=== PATIENT | female | born 1955 | race Caucasian/White ===

== ENCOUNTER 2017-01-30 13:42 | Emergency (ER) | payer OTHER ==
[~2017-01-30] VITALS: Ht 157.5 cm; Wt 123.4 kg
[~2017-01-30 13:42] MED LIST: ASPEC81 PO; METO25TA56 PO; MTR600X PO; NTRGSL/4 UT; SIMV40TA2 PO
[2017-01-30 13:49] VITALS: Ht 157.5 cm; Wt 123.4 kg
[2017-01-30] MEDS ORDERED: ALBUT/IPRATROP 3MG/0.5MG NEB 3 ML VIAL INH STA (14:24)
[2017-01-30] MEDS ORDERED: ASPI81TA28 PO (14:33)
--- NOTE | 2017-01-30 15:48 | DIAGNOSTIC IMAGING REPORT ---
CHEST 2 VIEWS ROUTINE CLINICAL HISTORY: Worsening cough, influenza dyspnea COMPARISON STUDY: 04/16/2010 FINDINGS: Parenchymal infiltrate right base. Minimal infiltrative change left base. Mid and upper lungs are grossly clear. Mild stable cardiomegaly. IMPRESSION: Infiltrate right base. Minimal parenchymal infiltrate left lower lobe. Electronically signed by: Mckinley Terry M.D. 01/30/2017 3:46 PM Dictated Date/Time: 01/30/2017 3:46 PM
[2017-01-30] MEDS ORDERED: HYDR5SYP11 PO (16:24)
[2017-01-30] MEDS ORDERED: DOXY100C PO (16:24)
[2017-01-30] MEDS ORDERED: ALBUTEROL HFA 8 GM INHALER INH STA (16:25)
[2017-01-30 16:30] VITALS: BP 150/83; PULSE 86; TEMP 36.8; O2SAT 94
--- NOTE | 2017-01-30 17:56 | EMERGENCY ROOM VISIT NOTE ---
History First contact with patient: 14:18 Chief Complaint: RESPIRATORY PROBLEMS Stated Complaint: CHEST PAIN AND COUGH Nursing Triage Summary: patient states she is short of breath for several days. non productive cough. now having some chest discomfort. History of Present Illness The patient is a 62 year old female who presents to the Emergency Room with complaints of progressively worsening cough and shortness of breath. The patient reports that her symptoms started on Saturday. She was seen at [facility] and tested positive for influenza. She was given prescriptions for Tamiflu and Tessalon Perles. She reports that the cough is worsening. She denies any prior history of asthma, pneumonia or COPD/emphysema. She has not had any fevers or chills, myalgias, chest pain, back pain, neck pain or headache. She denies any urinary symptoms or diarrhea. She currently rates her discomfort a 7 out of 10, and complains primarily of cough. Review of Systems 10 system review was performed and was negative except for pertinent positives and negatives as indicated in history of present illness Past Medical/Surgical History Medical Problems: (1) Body Mass Index 40 And Over, Adult (2) Coronary Atherosclerosis Of [place] Coronary Vessel (3) Lumbago (4) Morbid Obesity (5) Obstructive Sleep Apnea (Adult) (Pediatric) (6) Old Myocardial Infarct Surgical Problems: (1) History of cholecystectomy (2) History of hysterectomy Family History FH: cancer FH: diabetes mellitus FH: heart disease Social History Smoking Status: Never Smoker Alcohol Use: none Marital Status: Housing Status: lives with family Occupation Status: employed Current/Historical Medications Scheduled Aspirin (Aspirin Ec), 81 MG PO DAILY Doxycycline Hyclate (Vibramycin), 100 MG PO BID Metoprolol Tartrate (Lopressor) (Lopressor), 25 MG PO BID Nitroglycerin (Nitrostat), 0.4 MG UT PRN Scheduled PRN Hydrocodone W/ Homatropine (Hycodan 5/1.5MG 5 Ml), 5-10 ML PO Q4H PRN for Cough Allergies Coded Allergies: Latex1 -Allergic Contact Dermititis (Unverified Allergy, Mild, RASH, ) Adhesives (Verified Allergy, Unknown, BANDAIDS-GETS BLISTERS , 06/09/14) CLOTH BANDAIDS OK PER PT Simvastatin (Unverified Adverse Reaction, Intermediate, CRAMPING, 3/15/17) Physical Exam Vital Signs Date Time Temp Pulse Resp B/P Pulse Ox O2 Delivery O2 Flow Rate FiO2 01/30/17 16:30 36.8 86 20 150/83 94 01/30/17 15:27 86 20 94 Room Air 01/30/17 15:25 150/83 01/30/17 15:22 92 19 95 01/30/17 15:17 88 20 96 01/30/17 15:12 90 24 90 01/30/17 15:07 86 16 97 01/30/17 15:02 87 17 96 01/30/17 14:57 85 24 100 01/30/17 14:52 83 15 100 01/30/17 14:47 82 23 93 01/30/17 14:42 82 20 01/30/17 14:37 82 16 01/30/17 14:32 80 18 01/30/17 14:27 79 18 01/30/17 14:22 81 20 01/30/17 14:17 82 18 01/30/17 14:13 79 01/30/17 14:12 84 22 01/30/17 14:05 95 Room Air 01/30/17 13:49 36.8 85 20 177/68 94 Room Air Physical Exam CONSTITUTIONAL: Healthy and well nourished. Alert and oriented X 3 with positive affect. Patient has a frequent nonproductive cough. HEENT: Normocephalic, atraumatic. Pupils equal, round and reactive. Ears and nares are clear. NECK: Full active range of motion without discomfort. No JVD or carotid bruits. RESPIRATORY: Clear to auscultation bilaterally with no wheezing, crackles, rhonchi or stridor. CARDIOVASCULAR: Regular rate and rhythm with no murmurs, rubs or gallops. GASTROINTESTINAL: Bowel sounds present in all quadrants. Soft and nontender to palpation. MUSCULOSKELETAL: Full range of motion of all joints without discomfort. INTEGUMENTARY: No rash or other significant dermatologic conditions noted. NEUROLOGIC: No focal neurologic deficits noted. Medical Decision & Procedures ER Provider Diagnostic Interpretation: My interpretation of a two-view chest x-ray shows bibasilar infiltrates consistent with pneumonia. Radiologist report is as follows: CHEST 2 VIEWS ROUTINE CLINICAL HISTORY: Worsening cough, influenza dyspnea COMPARISON STUDY: 04/16/2010 FINDINGS: Parenchymal infiltrate right base. Minimal infiltrative change left base. Mid and upper lungs are grossly clear. Mild stable cardiomegaly. IMPRESSION: Infiltrate right base. Minimal parenchymal infiltrate left lower lobe. Medications Administered Medications (Trade) Dose Ordered Sig/Dakota Route Start Time Stop Time Status Last Admin Dose Admin Albuterol/ Ipratropium (Duoneb) 3 ml NOW STAT INH 01/30/17 14:24 01/30/17 14:26 DC 01/30/17 14:46 3 ML Albuterol (Ventolin Hfa Inhaler) 2 puffs ONE STAT INH 01/30/17 16:25 01/30/17 16:26 DC 01/30/17 16:30 2 PUFFS ED Course Patient history and physical exam were performed. Nurse's notes were reviewed. Vital signs were reviewed. O2 saturation is 94% on room air. The patient is afebrile and not tachycardic. The patient has a mild nonproductive cough. She does not appear in any acute respiratory distress. A unit dose DuoNeb treatment was administered with minimal relief of her cough. Chest x-rays showed bilateral basilar infiltrates consistent with pneumonia. The patient was advised of her chest x-ray findings. Was provided prescriptions for doxycycline and Hycodan cough syrup. The patient was instructed to also take Mucinex for additional cough relief. She was instructed to follow-up with her PCP in the next 2-3 days for recheck, returning to the emergency department for any progressively worsening symptoms. The patient felt well enough for discharge, and was happy with plan of care. Impression Primary Impression: Pneumonia Additional Impression: Influenza Departure Information Prescriptions Hydrocodone W/ Homatropine (HYCODAN 5/1.5MG 5 ML) 1 Syp Syp 5-10 ML PO Q4H Y for Cough, #200 ML Prov: Luis A Us PA 01/30/17 Doxycycline Hyclate (VIBRAMYCIN) 100 Mg Cap 100 MG PO BID for 10 Days, #20 CAP Prov: Luis A Us PA 01/30/17 Referrals No Doctor, Assigned (PCP) Patient Instructions My [facility] Problem Qualifiers Primary Impression: Pneumonia Pneumonia type: due to unspecified organism Laterality: bilateral Lung location: lower lobe of lung Qualified Codes: J18.9 - Pneumonia, unspecified organism
== END 2017-01-30 16:31 | disposition home or self-care (01) ==
LOC: C.EDB 13:43 → C.EDA 16:31
DX: J11.00 Influenza due to unidentified influenza virus with unspecified type of pneumonia (principal); I25.10 Atherosclerotic heart disease of native coronary artery without angina pectoris; I25.2 Old myocardial infarction; Z79.899 Other long term (current) drug therapy; Z79.82 Long term (current) use of aspirin; Z83.3 Family history of diabetes mellitus; Z82.49 Family history of ischemic heart disease and other diseases of the circulatory system

== ENCOUNTER 2023-06-10 08:47 | Observation (INO) ==
--- NOTE | 2023-06-10 09:02 | Emergency Department Note ---
History of Present Illness General Chief complaint: Chest Pain History of Present Illness 68-year-old female presents emergency department with an onset of right-sided chest pain that started earlier this morning. Patient states that the pain was moderate 5 out of 10 nonradiating no associated shortness of breath no nausea vomiting or diaphoresis. Patient called EMS was given aspirin prior to arrival. Patient currently states the pain has subsided. Patient denies rash on her chest. Patient denies cough cold congestion patient denies recent trauma to the chest. Patient has a prior history of 2 stents after an ND in 2009. Home Medications Medication Instructions Recorded Confirmed Type aspirin 81 mg tablet,delayed 81 mg PO QAM 04/28/22 06/10/23 History release metoprolol tartrate 25 mg tablet 25 mg PO BID 04/28/22 06/10/23 History nitroglycerin 0.4 mg sublingual 0.4 mg sublingual UD PRN Chest Pain 04/28/22 06/10/23 History tablet Hair, Skin And Nails Gummies 2 gummy PO DAILY 06/10/23 06/10/23 History Allergies Allergy/AdvReac Type Severity Reaction Status Date / Time latex Allergy Mild RASH Unverified 04/28/22 16:38 adhesive Allergy Unknown BANDAIDS-GETS Verified 04/28/22 16:38 BLISTERS simvastatin AdvReac Intermediate CRAMPING Unverified 04/28/22 16:38 Past Med/Surg History Medical History Coronary artery disease Hypertension Obesity Surgical History History of cholecystectomy History of hysterectomy Family History Other Family history non-contributory Social History Smoking Status: Never smoker Feels Safe at Home: Yes Review of Systems A total of 10 systems reviewed and were otherwise negative Cardiovascular: + chest pain Physical Exam Vital Signs Vital Signs - 24 hr 06/10/23 08:57 06/10/23 08:57 06/10/23 08:59 Temperature 36.6 C 36.6 C Temperature Source Oral Oral Pulse Rate 77 81 Pulse Rate [Left Finger] 77 Pulse Rhythm Regular Pulse Rhythm [Left Finger] Regular Pulse Strength Normal Pulse Strength [Left Finger] Normal Respiratory Rate 18 18 Respiratory Depth Normal Normal Blood Pressure 154/88 H Blood Pressure [Right Arm] 153/88 H Blood Pressure Mean 110 Blood Pressure Mean [Right Arm] 109 Blood Pressure Position Lying Pulse Oximetry 97 97 Oxygen Delivery Method Room Air Sepsis Recent Fever Within 48 Hours No Sepsis New/Unexplained Change in Mental Status N/A Sepsis Action Taken by Nursing No Action Required 06/10/23 09:00 06/10/23 09:30 06/10/23 10:00 Temperature Temperature Source Pulse Rate 77 66 63 Pulse Rate [Left Finger] Pulse Rhythm Pulse Rhythm [Left Finger] Pulse Strength Pulse Strength [Left Finger] Respiratory Rate 19 12 14 Respiratory Depth Blood Pressure 163/99 H 140/98 154/95 H Blood Pressure [Right Arm] Blood Pressure Mean 120 112 114 Blood Pressure Mean [Right Arm] Blood Pressure Position Pulse Oximetry 96 96 97 Oxygen Delivery Method Room Air Room Air Room Air Sepsis Recent Fever Within 48 Hours Sepsis New/Unexplained Change in Mental Status Sepsis Action Taken by Nursing 06/10/23 11:00 Temperature Temperature Source Pulse Rate 62 Pulse Rate [Left Finger] Pulse Rhythm Pulse Rhythm [Left Finger] Pulse Strength Pulse Strength [Left Finger] Respiratory Rate 12 Respiratory Depth Blood Pressure 145/88 H Blood Pressure [Right Arm] Blood Pressure Mean 107 Blood Pressure Mean [Right Arm] Blood Pressure Position Pulse Oximetry 96 Oxygen Delivery Method Room Air Sepsis Recent Fever Within 48 Hours Sepsis New/Unexplained Change in Mental Status Sepsis Action Taken by Nursing GENERAL: Patient is awake alert in no acute distress patient is resting comfortably and showing no signs of anxiety EYES: The conjunctivae are clear. The pupils are round and reactive. EARS, NOSE, MOUTH AND THROAT: The nose is without any evidence of any deformity. Mucous membranes are moist. Tongue is midline. NECK: The neck is nontender and supple. RESPIRATORY: Normal respiratory effort is noted there is no evidence of wheezing rhonchi or rales CARDIOVASCULAR: Regular rate and rhythm noted there no murmurs rubs or gallops normal S1 normal S2. GASTROINTESTINAL: The abdomen is soft. Abdomen is nontender. BMI is greater than 40 BACK: No midline tenderness or or step-off noted range of motion in flexion extension as well as rotation no signs of muscle spasm noted MUSCULOSKELETAL/EXTREMITIES: There is no evidence of gross deformity full range of motion is noted in the hips and shoulders. SKIN: There is no obvious evidence of any rash. There are no petechiae, pallor or cyanosis noted. NEUROLOGIC: Patient is awake alert and oriented x3 strength is symmetric Course Reevaluation(s) Reevaluation #1: Patient is resting in no distress with no current chest pain Time: :34 Consultations Consultation #1: Case was discussed with the [facility] Hospitalist for admission Time: :34 Administered Medications Discontinued Medications Ioversol (Ioversol 350 Mg 125ml Prefilled Syringe) 120 ml IV ONCE ONE Stop: 06/10/23 10:34 Last Admin: 06/10/23:34 Dose: 120 ml Documented By: ANGEL Medical Decision Making Medical Records Attestation: I reviewed the patient's medical records. Home Medications Current Medication List: was personally reviewed by me Laboratory Data Attestation: I reviewed the patient's lab results. Lab work interpreted by me normal troponin, elevated D-dimer 06/10/23 09:00 06/10/23 09:00 Lab Results 06/10/23 06/10/23 06/10/23 Range/Units 09:00 09:00 09:00 WBC 7.72 (4.8-10.8) K/ul RBC 4.86 (4.20-5.40) M/uL Hgb 15.6 (12.0-16.0) g/dl Hct 45.8 (37.0-47.0) % MCV 94.2 (80.0-100.0) fL MCH 32.1 (25.0-34.0) pg MCHC 34.1 (32.0-36.0) g/dL RDW Std Deviation 44.5 (36.4-46.3) fL RDW Coeff of Sherwin 12.9 (11.5-14.5) % Plt Count 183 (130-400) K/uL MPV 10.7 (9.4-12.4) fL Immature Gran % (Auto) 0.4 % Neut % (Auto) 67.4 % Lymph % (Auto) 19.6 % Owsley % (Auto) 9.8 % Eos % (Auto) 2.2 % Baso % (Auto) 0.6 % Neut # (Auto) 5.20 (1.40-6.50) K/uL Lymph # (Auto) 1.51 (1.2-3.4) K/uL Owsley # (Auto) 0.76 H (0.11-0.59) K/uL Eos # (Auto) 0.17 (0-0.50) K/uL Baso # (Auto) 0.05 (0-0.2) K/uL Immature Gran # (Auto) 0.03 (0.01-0.20) K/uL PT 10.5 (9.0-12.0) Seconds INR 1.0 (0.9-1.1) APTT 24.8 (21.0-31.0) Seconds PTT Ratio 0.9 D-Dimer 560 H* (0-500) ug/L FEU Sodium 136 (136-145) mmol/L Potassium 4.3 (3.5-5.1) mmol/L Chloride 102 (98-107) mmol/L Carbon Dioxide 25 (21-32) mmol/L Anion Gap 9 (3-11) BUN 13 (6-23) mg/dl Creatinine 0.90 (0.6-1.2) mg/dl Est Cr Clr Drug Dosing 75.7 ml/min Est GFR ( Amer) 76.7 ml/min Est GFR (Non-Af Amer) 66.2 ml/min BUN/Creatinine Ratio 14.4 (10-20) Glucose 177 H (70-99(Fasting)) mg/dl Calcium 9.1 (8.6-10.3) mg/dl Total Bilirubin 0.7 (0.2-1.0) mg/dl AST 27 (13-39) U/L ALT 23 (7-52) U/L Alkaline Phosphatase 65 (34-104) U/L Troponin I High Sens 4.9 (0-14) pg/ml Total Protein 7.8 (6.0-8.3) gm/dl Albumin 3.9 (3.4-5.0) gm/dl Globulin 3.9 (2.5-4.0) gm/dl Albumin/Globulin Ratio 1.0 (0.9-2) SARS-CoV-2, RNA, NAAT (NEGATIVE) 06/10/23 Range/Units 09:00 WBC (4.8-10.8) K/ul RBC (4.20-5.40) M/uL Hgb (12.0-16.0) g/dl Hct (37.0-47.0) % MCV (80.0-100.0) fL MCH (25.0-34.0) pg MCHC (32.0-36.0) g/dL RDW Std Deviation (36.4-46.3) fL RDW Coeff of Sherwin (11.5-14.5) % Plt Count (130-400) K/uL MPV (9.4-12.4) fL Immature Gran % (Auto) % Neut % (Auto) % Lymph % (Auto) % [place] % (Auto) % Eos % (Auto) % Baso % (Auto) % Neut # (Auto) (1.40-6.50) K/uL Lymph # (Auto) (1.2-3.4) K/uL [place] # (Auto) (0.11-0.59) K/uL Eos # (Auto) (0-0.50) K/uL Baso # (Auto) (0-0.2) K/uL Immature Gran # (Auto) (0.01-0.20) K/uL PT (9.0-12.0) Seconds INR (0.9-1.1) APTT (21.0-31.0) Seconds PTT Ratio D-Dimer (0-500) ug/L FEU Sodium (136-145) mmol/L Potassium (3.5-5.1) mmol/L Chloride (98-107) mmol/L Carbon Dioxide (21-32) mmol/L Anion Gap (3-11) BUN (6-23) mg/dl Creatinine (0.6-1.2) mg/dl Est Cr Clr Drug Dosing ml/min Est GFR ( Amer) ml/min Est GFR (Non-Af Amer) ml/min BUN/Creatinine Ratio (10-20) Glucose (70-99(Fasting)) mg/dl Calcium (8.6-10.3) mg/dl Total Bilirubin (0.2-1.0) mg/dl AST (13-39) U/L ALT (7-52) U/L Alkaline Phosphatase (34-104) U/L Troponin I High Sens (0-14) pg/ml Total Protein (6.0-8.3) gm/dl Albumin (3.4-5.0) gm/dl Globulin (2.5-4.0) gm/dl Albumin/Globulin Ratio (0.9-2) SARS-CoV-2, RNA, NAAT NEGATIVE (NEGATIVE) Imaging Data Attestation: I personally reviewed and interpreted this imaging study as follows: My Impression: Chest x-ray interpreted by me negative for infiltrate CT chest interpreted by me negative for pneumothorax Radiologist's Impression: Chest X-Ray 06/10/23 08:50 XR chest 1V portable CLINICAL HISTORY: Chest pain, nonspecific COMPARISON STUDY: Chest radiograph January 30, 2017. FINDINGS: Lung volumes are normal. Lungs are clear. There is no pneumothorax or pleural effusion. Cardiomegaly is unchanged. Mediastinal contours are normal. There is no evidence for pulmonary edema. IMPRESSION: No acute cardiopulmonary findings. Cardiomegaly. ACT 112: Negative or not required by law. Electronically signed by: Marcell Bhatia M.D. 06/10/2023 9:41 AM Chest CTA 06/10/23 10:11 CHEST CTA for PULMONARY ARTERIES CT DOSE: 848.44 mGy.cm HISTORY: Intermittent atypical chest pain. TECHNIQUE: Multiaxial CT images of the chest were performed following the intravenous administration of contrast to evaluate the pulmonary arteries. 3D/Maximal intensity projection images were also obtained. Sagittal and coronal reformations were also reviewed. A dose lowering technique was utilized adhering to the principles of ALARA. COMPARISON STUDY: Chest CTA 12/18/2010. FINDINGS: Normal caliber thoracic aorta with no evidence for a dissection. There are [id number] coronary artery calcifications noted. The heart is mildly enlarged. No filling defects within the pulmonary arteries to suggest a pulmonary embolus. No acute fractures within the chest. Trace mucoid material within the trachea. Otherwise, the central airways are patent. No pneumothorax. No pleural effusions. No focal lung consolidations to suggest a pneumonia. No evidence for pulmonary edema. No acute fractures identified. Limited views of the upper abdomen demonstrate hepatic steatosis and a normal spleen. The adrenal glands unremarkable. Prior cholecystectomy. No pericardial effusion. Normal esop hagus. No mediastinal or hilar lymphadenopathy. IMPRESSION: 1. No evidence for a pulmonary embolus. 2. Mild cardiomegaly. ACT 112: Negative or not required by law. Electronically signed by: Richi Harrington M.D. 06/10/2023 11:08 AM ECG Data Attestation: I personally reviewed and interpreted this ECG as follows: Additional Comments: EKG interpreted by me normal sinus rhythm rate of 70 normal intervals normal axis no obvious ST segment elevation or depression Telemetry was ordered by me, interpreted as normal sinus rhythm rate of 70 MDM Narrative Medical decision making differential diagnosis includes angina, unstable angina, acute coronary syndrome, acute ND, pneumothorax, costochondritis, pneumonia, pleurisy Plan is to check labs, EKG, chest x-ray, the patient was given aspirin prior to arrival External medical records were reviewed most recent presentation was April 2021 Heart score is a 4 Patient will be admitted for chest pain, I do not suspect PE or thoracic aortic dissection Impression & Plan Chest pain Discharge Plan Visit Data Chief Complaint: Chest Pain ED Provider: Jacob Winter Discharge Problem: Chest pain Patient Disposition: Admitted As Inpatient Forms Stand Alone Forms: My [facility] Prescriptions Prescriptions: No Action aspirin [Aspirin Low-Strength] 81 mg Tablet,Delayed Release (Dr/Ec) 81 mg PO QAM nitroglycerin 0.4 mg Tablet, Sublingual 0.4 mg sublingual UD PRN (Reason: Chest Pain) metoprolol tartrate 25 mg tablet 25 mg PO BID Hair, Skin And Nails Gummies 2 gummy PO DAILY Referrals Referrals: Calin Nassar MD [Primary Care Provider] -
[2023-06-10 09:35] LABS: Basophils # (auto) 0.05 K/uL (0-0.2); Basophils % (auto) 0.6 %; Eosinophils # (auto) 0.17 K/uL (0-0.50); Eosinophils % (auto) 2.2 %; Hematocrit (blood only) 45.8 % (37.0-47.0); Hemoglobin 15.6 g/dl (12.0-16.0); Immature Granulocytes # (auto) 0.03 K/uL (0.01-0.20); Immature Granulocytes % (auto) 0.4 %; Lymphocytes # (auto) 1.51 K/uL (1.2-3.4); Lymphocytes % (auto) 19.6 %; Mean Corpuscular Hemoglobin 32.1 pg (25.0-34.0); Mean Corpuscular Hgb Conc 34.1 g/dL (32.0-36.0); Mean Corpuscular Volume 94.2 fL (80.0-100.0); Mean Platelet Volume 10.7 fL (9.4-12.4); Monocytes # (auto) 0.76 K/uL (0.11-0.59); Monocytes % (auto) 9.8 %; Neutrophils % (auto) 67.4 %; Platelet Count 183 K/uL (130-400); RDW Coefficient of Variation 12.9 % (11.5-14.5); RDW Standard Deviation 44.5 fL (36.4-46.3); Red Blood Count 4.86 M/uL (4.20-5.40); White Blood Count 7.72 K/ul (4.8-10.8)
--- NOTE | 2023-06-10 09:42 | XRay Report ---
XR chest 1V portable CLINICAL HISTORY: Chest pain, nonspecific COMPARISON STUDY: Chest radiograph January 30, 2017. FINDINGS: Lung volumes are normal. Lungs are clear. There is no pneumothorax or pleural effusion. Car diomegaly is unchanged. Mediastinal contours are normal. There is no evidence for pulmonary edema. IMPRESSION: No acute cardiopulmonary findings. Cardiomegaly. ACT 112: Negative or not required by law. Electronically signed by: Marcell Bhatia M.D. 06/10/2023 9:41 AM
[2023-06-10 10:02] LABS: Partial Thromboplastin Ratio 0.9; Partial Thromboplastin Time 24.8 Seconds (21.0-31.0); Prothrombin Time 10.5 Seconds (9.0-12.0)
[2023-06-10 10:08] LABS: Albumin Level 3.9 gm/dl (3.4-5.0); Bilirubin,Total 0.7 mg/dl (0.2-1.0); Calcium 9.1 mg/dl (8.6-10.3); Potassium 4.3 mmol/L (3.5-5.1)
[2023-06-10 10:10] LABS: D Dimer 560 ug/L FEU (0-500)
[2023-06-10 10:14] LABS: BUN Creatinine Ratio 14.4 (10-20); Creatinine Clr Calc Pharmacy 75.7 ml/min; Est GFR (African American) 76.7 ml/min; Est GFR (Non-African American) 66.2 ml/min; Globulin 3.9 gm/dl (2.5-4.0); Total Protein 7.8 gm/dl (6.0-8.3)
[2023-06-10 10:16] LABS: Troponin I High Sensitivity 4.9 pg/ml (0-14)
[2023-06-10] MEDS ORDERED: IOVERSOL 350 MG 125mL Prefilled Syringe IV ONE (10:33)
--- NOTE | 2023-06-10 11:11 | CT Scan Report ---
CHEST CTA for PULMONARY ARTERIES CT DOSE: 848.44 mGy.cm HISTORY: Intermittent atypical chest pain. TECHNIQUE: Multiaxial CT images of the chest were performed following the intravenous administration of contrast to evaluate the pulmonary arteries. 3D/Maximal intensity projection images were also obta ined. Sagittal and coronal reformations were also reviewed. A dose lowering technique was utilized a dhering to the principles of ALARA. COMPARISON STUDY: Chest CTA 12/18/2010. FINDINGS: Normal caliber thoracic aorta with no evidence for a dissection. There are [id number] coronary artery calcifications noted. The heart is mildly enlarged. No filling defects within the pu lmonary arteries to suggest a pulmonary embolus. No acute fractures within the chest. Trace mucoid ma terial within the trachea. Otherwise, the central airways are patent. No pneumothorax. No pleural eff usions. No focal lung consolidations to suggest a pneumonia. No evidence for pulmonary edema. No acut e fractures identified. Limited views of the upper abdomen demonstrate hepatic steatosis and a normal spleen. The adrenal glands unremarkable. Prior cholecystectomy. No pericardial effusion. Normal esop hagus. No mediastinal or hilar lymphadenopathy. IMPRESSION: 1. No evidence for a pulmonary embolus. 2. Mild cardiomegaly. ACT 112: Negative or not required by law. Electronically signed by: Richi Harrington M.D. 06/10/2023 11:08 AM
--- NOTE | 2023-06-10 11:31 | Electrocardiogram Report ---
Test Reason : Blood Pressure : / mmHG Vent. Rate : 070 BPM Atrial Rate : 070 BPM P-R Int : 162 ms QRS Dur : 076 ms QT Int : 390 ms P-R-T Axes : 040 030 023 degrees QTc Int : 421 ms Normal sinus rhythm Normal ECG When compared with ECG of 28-APR-2022 14:04, No significant change was found Confirmed by Lane Murray ([id number]) on 06/10/2023 11:30:52 AM Referred By: Confirmed By:Lane Murray
--- NOTE | 2023-06-10 11:45 | History & Physical Report ---
Date of Service June 10, 2023 Assessment & Plan (1) Chest pain: Plan: This is a 68 y/o female with a history of CAD and prior AR s/p primary angioplasty to the diagonal branch of the LAD, dyslipidemia with hx of statin intolerance, HTN, and obesity who presented to the ED today with an episode of right chest pressure and heaviness that lasted approximately one hour, went away after taking aspirin 81 mg x 4 from EMS. Initial work-up in the ED was negative for ischemia but with her cardiac history and description of chest pain being similar to prior AR, pt was referred for observation overnight as a chest pain rule out. - Observe on med telemetry overnight - Repeat EKG in the AM and with any recurrent chest pain - Trend troponin - Check lipid panel in AM - pt is only able to tolerate taking statin once weekly - Check A1c in the AM as glucose in the ED was 177 and pt has a family history of diabetes - Spoke with Dr. Roche with whom patient follows as an outpatient - he will see pt while admitted - Check ECHO - Continue aspirin and beta-julieth (2) Coronary artery disease: (3) Hypertension: (4) Dyslipidemia: (5) Statin intolerance: Plan Pt seen and reviewed with collaborating physician, Dr. Richmond. Plan of care discussed and as outlined above. Code Status: Full code DVT Prophylaxis: Mao Simental PA-C History of Present Illness Chief Complaint: Chest Pain Primary Care Provider: Calin Nassar MD This is a 68 y/o female with a PMH of CAD and prior AR s/p angioplasty of the diagonal branch of the LAD in 2009, dyslipidemia with intolerance to statins, and HTN who presented to the ED today with chest pain. She reports that she got up this morning to go to the bathroom around 6 am and developed right chest pain that she describes as a heaviness and pressure. This radiated through to her back and right shoulder blade. She did not take her nitro but called EMS as the pain felt similar to her prior AR in 2009. She had some mild associated dyspnea but denies nausea, diaphoresis, palpitations, or dizziness. She reports that overall, she has done well since 2009 with no significant cardiac events. It appears that her last ECHO was in 2009. She denies any recent exertional chest pain or discomfort, recent illness, heavy lifting, change in activity level, or syncopal episodes. She is currently taking the rosuvastatin once a week on Wednesdays and seems to be tolerating this. Does not tolerate taking more frequently due to myalgias. Allergies Allergy/AdvReac Type Severity Reaction Status Date / Time latex Allergy Mild RASH Unverified 04/28/22 16:38 adhesive Allergy Unknown BANDAIDS-GETS Verified 04/28/22 16:38 BLISTERS simvastatin AdvReac Intermediate CRAMPING Unverified 04/28/22 16:38 Home Medications Medication Instructions Recorded Confirmed Type aspirin 81 mg tablet,delayed 81 mg PO QAM 04/28/22 06/10/23 History release metoprolol tartrate 25 mg tablet 25 mg PO BID 04/28/22 06/10/23 History nitroglycerin 0.4 mg sublingual 0.4 mg sublingual UD PRN Chest Pain 04/28/22 06/10/23 History tablet Hair, Skin And Nails Gummies 2 gummy PO DAILY 06/10/23 06/10/23 History rosuvastatin 5 mg tablet 5 mg PO WK 06/10/23 06/10/23 History Past Med/Surg History Medical History (Updated 06/10/23 @ 12:52 by Mercedez Simental PA-C) Coronary artery disease Dyslipidemia History of AR (myocardial infarction) Hypertension Obesity Statin intolerance Surgical History History of cholecystectomy History of D&C History of tonsillectomy Status post primary angioplasty Family History Sister Diabetes Brother Diabetes Father Heart disease Social History Smoking Status: Never smoker Second Hand Exposure: No; Do You Dip or Chew Tobacco: No; Tobacco Cessation Education Requested by Patient: No Hx Alcohol Use: No Hx Substance Use: No Preferred Language: Macedonian Communication Ability: Effective Jelly Maker Required: No Beliefs That Will Affect Care: None Current Living Situation: Family Other Information That Helps Us Care for You: No Feels Safe at Home: Yes Safety Concerns: Feels Safe At This Time Review of Systems Review of Systems: All systems reviewed & are unremarkable except as noted in HPI & below Constitutional: + fatigue and + weakness; no fever and no chills Eyes: no diplopia and no worsening vision Ear, Nose, Mouth, Throat: no nasal congestion, no nasal discharge and no sore throat Respiratory: no cough and no wheezing Cardiovascular: as per Subjective / HPI Gastrointestinal: no abdominal pain, no nausea, no vomiting, no diarrhea/loose stools and no blood in stools Genitourinary: no dysuria and no hematuria Musculoskeletal: no back pain and no neck pain Integumentary: no rash and no yellowing of the skin Neurologic: no unsteadiness, no seizure-like activity, no syncope and no headache(s) Psychiatric: no depression and no anxiety Physical Exam Constitutional: + obese; no acute distress Eyes: + anicteric sclerae Neck: trachea midline Respiratory: no respiratory distress and no labored breathing Auscultation: lungs clear to auscultation bilaterally; no rales, no rhonchi and no wheezes Cardiovascular: Rate/Rhythm: regular rate and regular rhythm Vessels: posterior tibial pulses present and radial pulses present Extremities: no pedal edema right chest wall tender to palpation - per pt, somewhat reproduces the chest pain she had earlier today Gastrointestinal (Abdomen): Inspection/Auscultation: normal bowel sounds; a bdomen not distended Percussion/Palpation: abdomen soft; abdomen nontender Musculoskeletal: Head/Neck/Chest: normocephalic, head atraumatic and neck supple Skin: no jaundice Neurologic: moves all extremities; no focal motor deficits and not confused Psychiatric: A+Ox3, euthymic affect Results & Data Results & Data Vital Signs (Past 12 Hours) Vital Signs Temp Pulse Pulse Resp BP BP Pulse Ox 06/10/23 11:00 62 12 145/88 H 96 06/10/23 10:00 63 14 154/95 H 97 06/10/23 09:30 66 12 140/98 96 06/10/23 09:00 77 19 163/99 H 96 06/10/23 08:59 81 06/10/23 08:57 36.6 C 77 18 153/88 H 97 06/10/23 08:57 36.6 C 77 18 154/88 H 97 O2 Del Method 06/10/23 11:00 Room Air 06/10/23 10:00 Room Air 06/10/23 09:30 Room Air 06/10/23 09:00 Room Air 06/10/23 08:59 06/10/23 08:57 06/10/23 08:57 Room Air Laboratory Results Laboratory Results - last 24 hr 06/10/23 06/10/23 06/10/23 09:00 09:00 09:00 WBC 7.72 RBC 4.86 Hgb 15.6 Hct 45.8 MCV 94.2 MCH 32.1 MCHC 34.1 RDW Std Deviation 44.5 RDW Coeff of Sherwin 12.9 Plt Count 183 MPV 10.7 Immature Gran % (Auto) 0.4 Neut % (Auto) 67.4 Lymph % (Auto) 19.6 [place] % (Auto) 9.8 Eos % (Auto) 2.2 Baso % (Auto) 0.6 Neut # (Auto) 5.20 Lymph # (Auto) 1.51 [place] # (Auto) 0.76 H Eos # (Auto) 0.17 Baso # (Auto) 0.05 Immature Gran # (Auto) 0.03 PT 10.5 INR 1.0 APTT 24.8 PTT Ratio 0.9 D-Dimer 560 H* Sodium 136 Potassium 4.3 Chloride 102 Carbon Dioxide 25 Anion Gap 9 BUN 13 Creatinine 0.90 Est Cr Clr Drug Dosing 75.7 Est GFR ( Amer) 76.7 Est GFR (Non-Af Amer) 66.2 BUN/Creatinine Ratio 14.4 Glucose 177 H Calcium 9.1 Total Bilirubin 0.7 AST 27 ALT 23 Alkaline Phosphatase 65 Troponin I High Sens 4.9 Total Protein 7.8 Albumin 3.9 Globulin 3.9 Albumin/Globulin Ratio 1.0 SARS-CoV-2, RNA, NAAT 06/10/23 09:00 WBC RBC Hgb Hct MCV MCH MCHC RDW Std Deviation RDW Coeff of Sherwin Plt Count MPV Immature Gran % (Auto) Neut % (Auto) Lymph % (Auto) [place] % (Auto) Eos % (Auto) Baso % (Auto) Neut # (Auto) Lymph # (Auto) [place] # (Auto) Eos # (Auto) Baso # (Auto) Immature Gran # (Auto) PT INR APTT PTT Ratio D-Dimer Sodium Potassium Chloride Carbon Dioxide Anion Gap BUN Creatinine Est Cr Clr Drug Dosing Est GFR ( Amer) Est GFR (Non-Af Amer) BUN/Creatinine Ratio Glucose Calcium Total Bilirubin AST ALT Alkaline Phosphatase Troponin I High Sens Total Protein Albumin Globulin Albumin/Globulin Ratio SARS-CoV-2, RNA, NAAT NEGATIVE Diagnostic Findings Chest X-Ray 06/10/23 08:50 XR chest 1V portable CLINICAL HISTORY: Chest pain, nonspecific COMPARISON STUDY: Chest radiograph January 30, 2017. FINDINGS: Lung volumes are normal. Lungs are clear. There is no pneumothorax or pleural effusion. Cardiomegaly is unchanged. Mediastinal contours are normal. There is no evidence for pulmonary edema. IMPRESSION: No acute cardiopulmonary findings. Cardiomegaly. Chest CTA 06/10/23 10:11 CHEST CTA for PULMONARY ARTERIES CT DOSE: 848.44 mGy.cm HISTORY: Intermittent atypical chest pain. TECHNIQUE: Multiaxial CT images of the chest were performed following the intravenous administration of contrast to evaluate the pulmonary arteries. 3D/Maximal intensity projection images were also obtained. Sagittal and coronal reformations were also reviewed. A dose lowering technique was utilized adhering to the principles of ALARA. COMPARISON STUDY: Chest CTA 12/18/2010. FINDINGS: Normal caliber thoracic aorta with no evidence for a dissection. There are [id number] coronary artery calcifications noted. The heart is mildly enlarged. No filling defects within the pulmonary arteries to suggest a pulmonary embolus. No acute fractures within the chest. Trace mucoid material within the trachea. Otherwise, the central airways are patent. No pneumothorax. No pleural effusions. No focal lung consolidations to suggest a pneumonia. No evidence for pulmonary edema. No acute fractures identified. Limited views of the upper abdomen demonstrate hepatic steatosis and a normal spleen. The adrenal glands unremarkable. Prior cholecystectomy. No pericardial effusion. Normal esophagus. No mediastinal or hilar lymphadenopathy. IMPRESSION: 1. No evidence for a pulmonary embolus. 2. Mild cardiomegaly. Medications Administered Discontinued Medications Ioversol (Ioversol 350 Mg 125ml Prefilled Syringe) 120 ml IV ONCE ONE Stop: 06/10/23 10:34 Last Admin: 06/10/23 10:34 Dose: 120 ml Documented By: ANGEL Supervising Physician Co-Signing Physician Notes Patient was seen and examined independently at bedside. Chart reviewed. Case discussed with Mercedez AGUILAR and agree with the documentation above. In summary, this is a 68 year old female with h/o CAD s/p angioplasty 2009 who presented to the ED with CP today. States this feels like her prior NSTEMI. She did not take her home SL nitro. Was given full dose aspirin by EMS During my encounter, she was lying comfortably in bed, not in distress, no more CP. Chest clear, non tender on palpation of chest, heart sounds normal, abd benign, no LE edeman, neuro non focal. On work up, EKG and initial trop negative, labs unremarkable, CT chest negative for PE or PNA. Seen by cardio. Agree with serial trop, tele, echo. If dynamic changes, stress test in am. NPO after midnight for same. Losartan added for BP control per cardio. Continue ASA, statin, beta julieth. Follow up on A1c- will need addition of oral antidiabetic if diabetes confirmed. Rest as per the note above.
--- NOTE | 2023-06-10 13:12 | Cardiology Consultation ---
Date of Consultation June 10, 2023 Assessment & Plan (1) Chest pain: (2) Hypertension: (3) Coronary artery disease: (4) Dyslipidemia: (5) Statin intolerance: Plan Patient admitted with atypical chest pain. History of remote CAD treated with angioplasty to the diagonal of the LAD in 2009 with other non obstructive disease noted. No recent ischemic work up. She was to have a dobutamine stress echo in 2016 but this was cancelled and not rescheduled. No acute EKG changes. HS troponin negative x1 on admission. repeat pending this afternoon. Continue ASA, low dose Crestor (intolerant of higher doses and Zetia), metoprolol. Uncontrolled hypertension noted in April 2023 in ER and again on this admission. She does not monitor BP at home. Continue metoprolol Add losartan 25 mg and titrate as tolerated. Recent A1C was 7.4 so she is likely diabetic and would benefit from SAJI/ARB. Hospitalist to recheck in AM and treat DM Update echo Further recommendations pending review/results of serial troponin, echocardiogram, and treatment of HTN. Will make NPO after midnight in case she has recurrent chest pain and consider ischemic work up at that time. Case discussed with Dr. Roche I spent a total of 55 minutes on the date of service in preparation, delivery, and documentation of the care provided to this patient, excluding any time spent in the performance of separately billed services. Юлия Ruth PA-C Department of Cardiology, [facility] This chart was completed in part utilizing Speech Voice Recognition Software. Grammatical errors, random word insertions, pronoun errors, and incomplete sentences are an occasional consequence of this system due to software limitations, ambient noise, and hardware issues. Any formal questions or concerns about the content, text, or information contained within the body of this dictation should be directly addressed to the provider for clarification. Supervising Physician Co-Signing Physician Notes Supervising Physician Attestation: I have personally performed a history and physical examination on the patient. I agree with the physician bilingual administrative assistant's findings and plan as documented with the following additions. Subjective: Chest pain improved at the time my assessment. Telemetry reveals sinus rhythm. EKG without ischemic changes Exam: Cardiovascular regular rhythm, no murmurs, no edema Pulmonary: Lungs clear to auscultation bilaterally Data: EKG without acute repolarization changes x2. CT angiogram without evidence of pulmonary embolism Echocardiogram reveals normal LVEF, 55 to 60%, no significant valvular disease, grade 2 diastolic dysfunction Assessment and Plan: Chest pain, troponin negative x2. EKG and echocardiogram reassuring Hypertension with blood pressure uncharacteristically high for her -- Echocardiogram suggest underlying high blood pressure related heart disease with mild concentric left ventricular hypertrophy, grade 2 diastolic dysfunction Continue prior to hospital treatment with metoprolol, add losartan. DVT prophylaxis: Consider pharmacologic DVT prophylaxis depending upon length of stay. I spent a total of [] minutes on the date of service in preparation, delivery, and documentation of the care provided to this patient, excluding any time spent in the performance of separately billed services. José Roche, DO History of Present Illness Reason for Consultation: chest pain; History of CAD Requesting Physician: Ms. Reid Simental PA-C Attending Physician: Dr. Roche History of Present Illness Patient is a 68 year old female known to [facility] cardiology, Dr. Roche. History includes: 1. Chronic coronary heart disease, s/p small NSTEMI 04/2010 for wich she underwentcardiac catheterization([facility]) with findings of branch vessel CAD receiving plain balloon angioplasty to a diagonal branch of the LAD, Proximal LAD lesion not significant by FFR 2. 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 HTN 4. Dyslipidemia 5. Statin intolerance. 6 obesity Patient admitted for episode of chest pain. Cardiology consulted for evaluation of her symptoms given history of CAD. Patient reports being awoken from sleep this morning with right sided chest pain/pressure radiating to her right shoulder. Symptoms waxed/waned for about 30 minutes. When symptoms did not fully resolve, she called EMS. When EMS arrived, she was treated with ASA 81 mg x4 and symptoms resolved within a few minutes. She was brought to ER for evaluation. EKG on arrival demonstrated NSR without acute changes. There was T wave inversion in single lead, III. Initial HS troponin was negative. D.Dimer was elevated and patient underwent CTA which was negative for PE or other acute findings. Chest xray was clear. Uncontrolled hypertension noted. Patient reports compliance with her metoprolol. She does not monitor her BP at home. She was in the ER last month for possible GI bleeding from hemorrhoids. Uncontrolled hypertension was noted. She was to follow up with PCP at that time but no appts scheduled. Hbg normal now. No signs of GI bleeding. BP remains high again this admission. At time of consult, patient resting in bed comfortably. Notes intermittent chest pain since admission but these episodes "come and go" lasting only seconds. No radiation. No positional chest pain or pleuritic chest pain. She denies recent exertional chest pain. Admits to chronic dyspnea with steps or walking long distances but feels this is unchanged. No palpitations or tachypalpitations. No recent ischemic evaluation per outside records review. She is compliant with low dose Crestor one time per week. She has intolerances to multiple other statins and Zetia. she has previously declined PCSK9 inhib. Per review of outpatient records, recent A1C was 7.4. not currently treated for DM. Allergies Allergy/AdvReac Type Severity Reaction Status Date / Time latex Allergy Mild RASH Unverified 04/28/22 16:38 adhesive Allergy Unknown BANDAIDS-GETS Verified 04/28/22 16:38 BLISTERS simvastatin AdvReac Intermediate CRAMPING Unverified 04/28/22 16:38 Home Medications Medication Instructions Recorded Confirmed Type aspirin 81 mg tablet,delayed 81 mg PO QAM 04/28/22 06/10/23 History release metoprolol tartrate 25 mg tablet 25 mg PO BID 04/28/22 06/10/23 History nitroglycerin 0.4 mg sublingual 0.4 mg sublingual UD PRN Chest Pain 04/28/22 06/10/23 History tablet Hair, Skin And Nails Gummies 2 gummy PO DAILY 06/10/23 06/10/23 History rosuvastatin 5 mg tablet 5 mg PO WK 06/10/23 06/10/23 History Patient History Medical History (Updated 06/10/23 @ 12:52 by Mercedez Simental PA-C) Coronary artery disease Dyslipidemia History of RI (myocardial infarction) Hypertension Obesity Statin intolerance Surgical History History of cholecystectomy History of D&C History of tonsillectomy Status post primary angioplasty Family History Sister Diabetes Brother Diabetes Father Heart disease Social History Smoking Status: Never smoker Second Hand Exposure: No; Do You Dip or Chew Tobacco: No; Tobacco Cessation Education Requested by Patient: No Hx Alcohol Use: No Hx Substance Use: No Preferred Language: Spanish Communication Ability: Effective Manager Hvac Required: No Beliefs That Will Affect Care: None Current Living Situation: Family Other Information That Helps Us Care for You: No Feels Safe at Home: Yes Safety Concerns: Feels Safe At This Time Review of Systems Review of Systems: All systems reviewed & are unremarkable except as noted in HPI & below Physical Exam Constitutional: WD/WN, vitals as above + morbidly obese; no acute distress Neck: + thick neck Respiratory: normal respiratory effort, lungs clear to auscultation Cardiovascular: Rate/Rhythm: regular rate and regular rhythm Heart Sounds: normal S1 and normal S2; no murmur Vessels: no JVD Extremities: no edema Gastrointestinal (Abdomen): normal bowel sounds, soft, nontender, no hepatosplenomegaly Neurologic: PERRL, EOMI, accommodation nl, no face palsy, no dysarthria Results & Data Vital Signs (Past 12 Hours) Vital Signs Temp Pulse Pulse Resp BP BP Pulse Ox 06/10/23 13:00 65 20 156/91 H 98 06/10/23 12:30 67 14 151/110 H 97 06/10/23 12:00 65 18 140/82 97 06/10/23 11:30 64 16 142/80 H 95 06/10/23 11:00 62 12 145/88 H 96 06/10/23 10:00 63 14 154/95 H 97 06/10/23 09:30 66 12 140/98 96 06/10/23 09:00 77 19 163/99 H 96 06/10/23 08:59 81 06/10/23 08:57 36.6 C 77 18 153/88 H 97 06/10/23 08:57 36.6 C 77 18 154/88 H 97 O2 Del Method 06/10/23 13:00 Room Air 06/10/23 12:30 Room Air 06/10/23 12:00 Room Air 06/10/23 11:30 Room Air 06/10/23 11:00 Room Air 06/10/23 10:00 Room Air 06/10/23 09:30 Room Air 06/10/23 09:00 Room Air 06/10/23 08:59 06/10/23 08:57 07/24/23 08:57 Room Air Laboratory Results Cardiac Enzymes 06/10/23 Range/Units 09:00 AST 27 (13-39) U/L Troponin I High Sens 4.9 (0-14) pg/ml Coagulation 06/10/23 Range/Units 09:00 PT 10.5 (9.0-12.0) Seconds APTT 24.8 (21.0-31.0) Seconds CBC 06/10/23 Range/Units 09:00 WBC 7.72 (4.8-10.8) K/ul RBC 4.86 (4.20-5.40) M/uL Hgb 15.6 (12.0-16.0) g/dl Hct 45.8 (37.0-47.0) % Plt Count 183 (130-400) K/uL Neut # (Auto) 5.20 (1.40-6.50) K/uL Lymph # (Auto) 1.51 (1.2-3.4) K/uL [place] # (Auto) 0.76 H (0.11-0.59) K/uL Eos # (Auto) 0.17 (0-0.50) K/uL Baso # (Auto) 0.05 (0-0.2) K/uL Comprehensive Metabolic Panel 06/10/23 Range/Units 09:00 Sodium 136 (136-145) mmol/L Potassium 4.3 (3.5-5.1) mmol/L Chloride 102 (98-107) mmol/L Carbon Dioxide 25 (21-32) mmol/L BUN 13 (6-23) mg/dl Creatinine 0.90 (0.6-1.2) mg/dl Glucose 177 H (70-99(Fasting)) mg/dl Calcium 9.1 (8.6-10.3) mg/dl AST 27 (13-39) U/L ALT 23 (7-52) U/L Alkaline Phosphatase 65 (34-104) U/L Total Protein 7.8 (6.0-8.3) gm/dl Albumin 3.9 (3.4-5.0) gm/dl Intake and Output 06/09/23 06/10/23 06/10/23 22:59 06:59 14:59 Other: Weight 122.5 kg Weight Measurement Method Built in [facility] Patient Weight 06/11/23 06:59 Weight 122.5 kg Diagnostic Findings Telemetry reviewed: NSR without arrhythmias EKG reviewed: Normal sinus rhythm No acute changes/findings. When compared with ECG of 28-APR-2022 14:04, No significant change was found Chest X-Ray 06/10/23 08:50 XR chest 1V portable CLINICAL HISTORY: Chest pain, nonspecific COMPARISON STUDY: Chest radiograph January 30, 2017. FINDINGS: Lung volumes are normal. Lungs are clear. There is no pneumothorax or pleural effusion. Cardiomegaly is unchanged. Mediastinal contours are normal. There is no evidence for pulmonary edema. IMPRESSION: No acute cardiopulmonary findings. Cardiomegaly. ACT 112: Negative or not required by law. Electronically signed by: Marcell Bhatia M.D. 06/10/2023 9:41 AM Chest CTA 06/10/23 10:11 CHEST CTA for PULMONARY ARTERIES CT DOSE: 848.44 mGy.cm HISTORY: Intermittent atypical chest pain. TECHNIQUE: Multiaxial CT images of the chest were performed following the intravenous administration of contrast to evaluate the pulmonary arteries. 3D/Maximal intensity projection images were also obtained. Sagittal and coronal reformations were also reviewed. A dose lowering technique was utilized adhering to the principles of ALARA. COMPARISON STUDY: Chest CTA 12/18/2010. FINDINGS: Normal caliber thoracic aorta with no evidence for a dissection. There are [id number] coronary artery calcifications noted. The heart is mildly enlarged. No filling defects within the pulmonary arteries to suggest a pulmonary embolus. No acute fractures within the chest. Trace mucoid material within the trachea. Otherwise, the central airways are patent. No pneumothorax. No pleural effusions. No focal lung consolidations to suggest a pneumonia. No evidence for pulmonary edema. No acute fractures identified. Limited views of the upper abdomen demonstrate hepatic steatosis and a normal spleen. The adrenal glands unremarkable. Prior cholecystectomy. No pericardial effusion. Normal esophagus. No mediastinal or hilar lymphadenopathy. IMPRESSION: 1. No evidence for a pulmonary embolus. 2. Mild cardiomegaly. ACT 112: Negative or not required by law. Electronically signed by: Richi Harrington M.D. 06/10/2023 11:08 AM Medications Administered Current Inpatient Medications Acetaminophen (Acetaminophen 325 Mg Tab) 650 mg PO Q4H PRN PRN Reason: Pain or Fever Stop: 07/10/23 14:09 Aspirin (Aspirin 81 Mg Ectab) 81 mg PO QAM [facility] Stop: 07/11/23 08:59 Losartan Potassium (Losartan Potassium 25 Mg Tab) 25 mg PO QAM [facility] Stop: 07/10/23 14:29 Metoprolol Tartrate (Metoprolol Tartrate 25 Mg Tab) 25 mg PO BID [facility] Stop: 07/10/23 20:59 Nitroglycerin (Nitroglycerin Sl 0.4 Mg/Tab Tab) 0.4 mg SL Q5M PRN PRN Reason: Chest Pain Stop: 07/10/23 14:09
[2023-06-10] MEDS ORDERED: NITROGLYCERIN SL 0.4 MG/TAB TAB SL PRN (14:10)
[2023-06-10] MEDS ORDERED: ACETAMINOPHEN 325 MG TAB PO PRN (14:10)
[2023-06-10] MEDS: LOSARTAN POTASSIUM 25 MG TAB PO SCH (15:30)
[2023-06-10] MEDS: METOPROLOL TARTRATE 25 MG TAB PO SCH (20:07)
[2023-06-11 07:54] LABS: Estimated Average Glucose 183 mg/dl
[2023-06-11 08:26] LABS: Chol HDL Ratio 4.7 (0-5)
--- NOTE | 2023-06-11 08:48 | Electrocardiogram Report ---
Test Reason : Blood Pressure : / mmHG Vent. Rate : 067 BPM Atrial Rate : 067 BPM P-R Int : 160 ms QRS Dur : 084 ms QT Int : 398 ms P-R-T Axes : 049 039 033 degrees QTc Int : 420 ms Normal sinus rhythm Normal ECG When compared with ECG of 10-JUN-2023 08:52, No significant change was found Confirmed by Lane Murray ([id number]) on 06/11/2023 8:48:34 AM Referred By: REFERRED SELF Confirmed By:Lane Murray
[2023-06-11] MEDS: LOSARTAN POTASSIUM 25 MG TAB PO SCH (08:57)
[2023-06-11] MEDS: METOPROLOL TARTRATE 25 MG TAB PO SCH (08:57)
[2023-06-11] MEDS ORDERED: ASPIRIN 81 MG ECTAB PO SCH (09:00)
--- NOTE | 2023-06-11 09:28 | Hospitalist Progress Note ---
Date of Service June 11, 2023 Assessment & Plan (1) Chest pain: Plan: This is a 68 y/o female with a history of CAD and prior AK s/p primary angioplasty to the diagonal branch of the LAD, dyslipidemia with hx of statin intolerance, HTN, and obesity who presented to the ED with an episode of right chest pressure and heaviness that lasted approximately one hour, went away after taking aspirin 81 mg x 4 from EMS. Initial work-up in the ED was negative for ischemia but with her cardiac history and description of chest pain being similar to prior AK, pt was referred for observation overnight as a chest pain rule out. - med telemetry - Trended troponin - Checked lipid panel - pt is only able to tolerate taking statin once weekly - Checked A1c 8.0% - found elevated which is a sign of diabetes - pt needs to follow up with primary care doctor - pt has a family history of diabetes - Discussed w/ cardiology - with Dr. Roche Echo obtained - Mild concentric LVH. No regional wall motion abnormalities noted. LV systolic function is normal. EF 55 to 60%. Diastolic function. Study compatible with hypertension related heart disease with mild concentric LVH, with grade 2 diastolic function - Continue aspirin and beta-julieth Per cardiology - echo with preserved EF, no wall motion abnormalities. Given negative cardiac enzymes, no recurrent chest pain, and normal echo, no further cardiac testing warranted at this time. Continue ASA, low dose Crestor (intolerant of higher doses and Zetia), metoprolol. Uncontrolled hypertension noted in April 2023 in ER and again on this admission. She does not monitor BP at home. Continue metoprolol Add losartan 25 mg (2) Coronary artery disease: (3) Hypertension: (4) Dyslipidemia: (5) Statin intolerance: Plan Code Status: Full code DVT Prophylaxis: Lovenox Admission and Anticipated Discharge Date Admission Date: June 10, 2023 Subjective Pt seen in follow up of chest pain Currently sitting up in bed in NAD Currently denies any chest discomfort Says she had right sided chest pain radiating to her arm. Day prior she was able to do all her regular activities including cleaning the floor. Currently also denies any shortness of breath, abd. pain, n/v denies any fever or chills Discussed w/ cardiology Review of Systems Review of Systems: All systems reviewed & are unremarkable except as noted in Subjective Physical Exam Physical Exam: Constitutional:L + obese; no acute distress Eyes: + anicteric sclera e Neck: supple Respiratory: no respiratory dis tress and no labor ed breathing Ausc ultation: lungs cl ear to auscultatio n bilaterally; no rales, no rhonchi and no wheezes Cardiovascular:L Rate/Rhythm: regul ar rate and regula r rhythm Gastrointestinal ( Abdomen): Inspection/Auscult ation: normal moisés l sounds; abdomen not distended Per cussion/Palpation: abdomen soft; abd omen nontender Musculoskeletal: Head/Neck/Chest: n ormocephalic, head atraumatic and ne ck supple Skin: warm, dry Neurologic: moves all extremit ies; no focal sumaya r deficits and not confused Psychiatric: A+Ox3, euthymic af fect Results & Data Results & Data Vital Signs (Past 12 Hours) Vital Signs Temp Pulse Pulse Resp BP Pulse Ox O2 Del Method 06/11/23 08:00 36.4 C L 69 16 123/80 94 Room Air 06/11/23 07:34 64 06/11/23 04:10 36.9 C 72 18 136/78 96 Room Air 06/11/23 01:16 70 06/10/23 22:46 36.9 C 70 18 124/83 95 Room Air Laboratory Results 06/11/23 06/11/23 06/10/23 Range/Units 07:03 07:03 21:00 WBC (4.8-10.8) K/ul RBC (4.20-5.40) M/uL Hgb (12.0-16.0) g/dl Hct (37.0-47.0) % MCV (80.0-100.0) fL MCH (25.0-34.0) pg MCHC (32.0-36.0) g/dL RDW Std Deviation (36.4-46.3) fL RDW Coeff of Sherwin (11.5-14.5) % Plt Count (130-400) K/uL MPV (9.4-12.4) fL Immature Gran % (Auto) % Neut % (Auto) % Lymph % (Auto) % [place] % (Auto) % Eos % (Auto) % Baso % (Auto) % Neut # (Auto) (1.40-6.50) K/uL Lymph # (Auto) (1.2-3.4) K/uL [place] # (Auto) (0.11-0.59) K/uL Eos # (Auto) (0-0.50) K/uL Baso # (Auto) (0-0.2) K/uL Immature Gran # (Auto) (0.01-0.20) K/uL PT (9.0-12.0) Seconds INR (0.9-1.1) APTT (21.0-31.0) Seconds PTT Ratio D-Dimer (0-500) ug/L FEU Sodium (136-145) mmol/L Potassium (3.5-5.1) mmol/L Chloride (98-107) mmol/L Carbon Dioxide (21-32) mmol/L Anion Gap (3-11) BUN (6-23) mg/dl Creatinine (0.6-1.2) mg/dl Est Cr Clr Drug Dosing ml/min Est GFR ( Amer) ml/min Est GFR (Non-Af Amer) ml/min BUN/Creatinine Ratio (10-20) Glucose (70-99(Fasting)) mg/dl Estimat Average Glucose 183 mg/dl Hemoglobin A1c 8.0 H (4.5-5.6) % Calcium (8.6-10.3) mg/dl Total Bilirubin (0.2-1.0) mg/dl AST (13-39) U/L ALT (7-52) U/L Alkaline Phosphatase (34-104) U/L Troponin I High Sens 4.0 (0-14) pg/ml Total Protein (6.0-8.3) gm/dl Albumin (3.4-5.0) gm/dl Globulin (2.5-4.0) gm/dl Albumin/Globulin Ratio (0.9-2) Triglycerides 141 (0-150) mg/dl Cholesterol 184 (0-200) mg/dl LDL Cholesterol, Calc 117 mg/dl VLDL Cholesterol, Calc 28 (0-30) mg/dl HDL Cholesterol 39 mg/dl Cholesterol/HDL Ratio 4.7 (0-5) SARS-CoV-2, RNA, NAAT (NEGATIVE) 06/10/23 06/10/23 06/10/23 Range/Units 15:37 09:00 09:00 WBC (4.8-10.8) K/ul RBC (4.20-5.40) M/uL Hgb (12.0-16.0) g/dl Hct (37.0-47.0) % MCV (80.0-100.0) fL MCH (25.0-34.0) pg MCHC (32.0-36.0) g/dL RDW Std Deviation (36.4-46.3) fL RDW Coeff of Sherwin (11.5-14.5) % Plt Count (130-400) K/uL MPV (9.4-12.4) fL Immature Gran % (Auto) % Neut % (Auto) % Lymph % (Auto) % [place] % (Auto) % Eos % (Auto) % Baso % (Auto) % Neut # (Auto) (1.40-6.50) K/uL Lymph # (Auto) (1.2-3.4) K/uL [place] # (Auto) (0.11-0.59) K/uL Eos # (Auto) (0-0.50) K/uL Baso # (Auto) (0-0.2) K/uL Immature Gran # (Auto) (0.01-0.20) K/uL PT (9.0-12.0) Seconds INR (0.9-1.1) APTT (21.0-31.0) Seconds PTT Ratio D-Dimer (0-500) ug/L FEU Sodium 136 (136-145) mmol/L Potassium 4.3 (3.5-5.1) mmol/L Chloride 102 (98-107) mmol/L Carbon Dioxide 25 (21-32) mmol/L Anion Gap 9 (3-11) BUN 13 (6-23) mg/dl Creatinine 0.90 (0.6-1.2) mg/dl Est Cr Clr Drug Dosing 75.7 ml/min Est GFR ( Amer) 76.7 ml/min Est GFR (Non-Af Amer) 66.2 ml/min BUN/Creatinine Ratio 14.4 (10-20) Glucose 177 H (70-99(Fasting)) mg/dl Estimat Average Glucose mg/dl Hemoglobin A1c (4.5-5.6) % Calcium 9.1 (8.6-10.3) mg/dl Total Bilirubin 0.7 (0.2-1.0) mg/dl AST 27 (13-39) U/L ALT 23 (7-52) U/L Alkaline Phosphatase 65 (34-104) U/L Troponin I High Sens 5.6 4.9 (0-14) pg/ml Total Protein 7.8 (6.0-8.3) gm/dl Albumin 3.9 (3.4-5.0) gm/dl Globulin 3.9 (2.5-4.0) gm/dl Albumin/Globulin Ratio 1.0 (0.9-2) Triglycerides (0-150) mg/dl Cholesterol (0-200) mg/dl LDL Cholesterol, Calc mg/dl VLDL Cholesterol, Calc (0-30) mg/dl HDL Cholesterol mg/dl Cholesterol/HDL Ratio (0-5) SARS-CoV-2, RNA, NAAT NEGATIVE (NEGATIVE) 06/10/23 06/10/23 Range/Units 09:00 09:00 WBC 7.72 (4.8-10.8) K/ul RBC 4.86 (4.20-5.40) M/uL Hgb 15.6 (12.0-16.0) g/dl Hct 45.8 (37.0-47.0) % MCV 94.2 (80.0-100.0) fL MCH 32.1 (25.0-34.0) pg MCHC 34.1 (32.0-36.0) g/dL RDW Std Deviation 44.5 (36.4-46.3) fL RDW Coeff of Sherwin 12.9 (11.5-14.5) % Plt Count 183 (130-400) K/uL MPV 10.7 (9.4-12.4) fL Immature Gran % (Auto) 0.4 % Neut % (Auto) 67.4 % Lymph % (Auto) 19.6 % [place] % (Auto) 9.8 % Eos % (Auto) 2.2 % Baso % (Auto) 0.6 % Neut # (Auto) 5.20 (1.40-6.50) K/uL Lymph # (Auto) 1.51 (1.2-3.4) K/uL [place] # (Auto) 0.76 H (0.11-0.59) K/uL Eos # (Auto) 0.17 (0-0.50) K/uL Baso # (Auto) 0.05 (0-0.2) K/uL Immature Gran # (Auto) 0.03 (0.01-0.20) K/uL PT 10.5 (9.0-12.0) Seconds INR 1.0 (0.9-1.1) APTT 24.8 (21.0-31.0) Seconds PTT Ratio 0.9 D-Dimer 560 H* (0-500) ug/L FEU Sodium (136-145) mmol/L Potassium (3.5-5.1) mmol/L Chloride (98-107) mmol/L Carbon Dioxide (21-32) mmol/L Anion Gap (3-11) BUN (6-23) mg/dl Creatinine (0.6-1.2) mg/dl Est Cr Clr Drug Dosing ml/min Est GFR ( Amer) ml/min Est GFR (Non-Af Amer) ml/min BUN/Creatinine Ratio (10-20) Glucose (70-99(Fasting)) mg/dl Estimat Average Glucose mg/dl Hemoglobin A1c (4.5-5.6) % Calcium (8.6-10.3) mg/dl Total Bilirubin (0.2-1.0) mg/dl AST (13-39) U/L ALT (7-52) U/L Alkaline Phosphatase (34-104) U/L Troponin I High Sens (0-14) pg/ml Total Protein (6.0-8.3) gm/dl Albumin (3.4-5.0) gm/dl Globulin (2.5-4.0) gm/dl Albumin/Globulin Ratio (0.9-2) Triglycerides (0-150) mg/dl Cholesterol (0-200) mg/dl LDL Cholesterol, Calc mg/dl VLDL Cholesterol, Calc (0-30) mg/dl HDL Cholesterol mg/dl Cholesterol/HDL Ratio (0-5) SARS-CoV-2, RNA, NAAT (NEGATIVE) Medications Administered Current Inpatient Medications Acetaminophen (Acetaminophen 325 Mg Tab) 650 mg PO Q4H PRN PRN Reason: Pain or Fever Stop: 07/10/23 14:09 Aspirin (Aspirin 81 Mg Ectab) [address] [facility] Stop: 07/11/23 08:59 Last Admin: 06/11/23 08:57 Dose: 81 mg Losartan Potassium (Losartan Potassium 25 Mg Tab) 25 mg PO QAM [facility] Stop: 07/10/23 14:29 Last Admin: 06/11/23 08:57 Dose: 25 mg Metoprolol Tartrate (Metoprolol Tartrate 25 Mg Tab) 25 mg PO BID [facility] Stop: 07/10/23 20:59 Last Admin: 06/11/23 08:57 Dose: 25 mg Nitroglycerin (Nitroglycerin Sl 0.4 Mg/Tab Tab) 0.4 mg SL Q5M PRN PRN Reason: Chest Pain Stop: 07/10/23 14:09
--- NOTE | 2023-06-11 09:46 | Cardiology Progress Note ---
Date of Service June 11, 2023 Assessment & Plan (1) Chest pain: (2) Hypertension: (3) Coronary artery disease: (4) Dyslipidemia: (5) Statin intolerance: Plan Patient admitted with atypical chest pain. History of remote CAD treated with angioplasty to the diagonal of the LAD in 2009 with other non obstructive disease noted. No acute EKG changes on admission. HS troponin negative x3 since admission No recurrent chest pain Continue ASA, low dose Crestor (intolerant of higher doses and Zetia), metoprolol. Uncontrolled hypertension noted in April 2023 in ER and again on this admission. She does not monitor BP at home. Continue metoprolol Add losartan 25 mg BP improved. echo with preserved EF, no wall motion abnormalities. Given negative cardiac enzymes, no recurrent chest pain, and normal echo, no further cardiac testing warranted at this time. would recommend treatment for underlying DM. Defer to hospitalist and PCP. Stable cardiac symptoms for discharge with above recommendations. Breakfast ordered. Case discussed with Dr. Roche I spent a total of 25 minutes on the date of service in preparation, delivery, and documentation of the care provided to this patient, excluding any time spent in the performance of separately billed services. Юлия Ruth PA-C Department of Cardiology, [facility] This chart was completed in part utilizing Speech Voice Recognition Software. Grammatical errors, random word insertions, pronoun errors, and incomplete sentences are an occasional consequence of this system due to software limitations, ambient noise, and hardware issues. Any formal questions or concerns about the content, text, or information contained within the body of this dictation should be directly addressed to the provider for clarification. Admission and Anticipated Discharge Date Admission Date: June 10, 2023 Supervising Physician Co-Signing Physician Notes I personally did a history and physical exam on the patient. Reviewed findings as noted by Юлия Ruth PA-C with additions as noted below. Subjective: Additional chest discomfort. Blood pressure under much better control. Physical exam: Cardiovascular: Regular rhythm no murmurs rubs or gallops Lungs clear to station bilaterally Impression: Chest discomfort, atypical in character for angina with negative cardiac enzymes, no ischemic changes on EKG Hypertension with suggestion of hypertension related heart disease on echocardiogram -Patient stable for discharge on losartan 25 mg daily in addition to her previous medications no further cardiac testing felt to be indicated at present. Already has outpatient follow-up visit. Elfego Roche , DO Subjective Patient resting in bed comfortably. Denies recurrent chest pain or dyspnea. BP much improved. She voices no acute cardiac concerns this morning. Review of Systems Review of Systems: All systems reviewed & are unremarkable except as noted in HPI & below Physical Exam Constitutional: WD/WN, vitals as above + morbidly obese; no acute distress Neck: + thick neck Respiratory: normal respiratory effort, lungs clear to auscultation Cardiovascular: Rate/Rhythm: regular rate and regular rhythm Heart Sounds: normal S1 and normal S2; no murmur Vessels: no JVD Extremities: no edema Gastrointestinal (Abdomen): normal bowel sounds, soft, nontender, no hepatosplenomegaly Neurologic: PERRL, EOMI, accommodation nl, no face palsy, no dysarthria Results & Data Vital Signs (Past 12 Hours) Vital Signs Temp Pulse Pulse Resp BP Pulse Ox O2 Del Method 06/11/23 08:00 36.4 C L 69 16 123/80 94 Room Air 06/11/23 07:34 64 06/11/23 04:10 36.9 C 72 18 136/78 96 Room Air 06/11/23 01:16 70 06/10/23 22:46 36.9 C 70 18 124/83 95 Room Air Laboratory Results Cardiac Enzymes 06/10/23 06/10/23 06/10/23 Range/Units 09:00 15:37 21:00 AST 27 (13-39) U/L Troponin I High Sens 4.9 5.6 4.0 (0-14) pg/ml Coagulation 06/10/23 Range/Units 09:00 PT 10.5 (9.0-12.0) Seconds APTT 24.8 (21.0-31.0) Seconds Lipids 06/11/23 Range/Units 07:03 Triglycerides 141 (0-150) mg/dl Cholesterol 184 (0-200) mg/dl HDL Cholesterol 39 mg/dl Cholesterol/HDL Ratio 4.7 (0-5) Comprehensive Metabolic Panel 06/10/23 Range/Units 09:00 Sodium 136 (136-145) mmol/L Potassium 4.3 (3.5-5.1) mmol/L Chloride 102 (98-107) mmol/L Carbon Dioxide 25 (21-32) mmol/L BUN 13 (6-23) mg/dl Creatinine 0.90 (0.6-1.2) mg/dl Glucose 177 H (70-99(Fasting)) mg/dl Calcium 9.1 (8.6-10.3) mg/dl AST 27 (13-39) U/L ALT 23 (7-52) U/L Alkaline Phosphatase 65 (34-104) U/L Total Protein 7.8 (6.0-8.3) gm/dl Albumin 3.9 (3.4-5.0) gm/dl Intake and Output 06/10/23 06/11/23 06/11/23 22:59 06:59 14:59 Intake Total 0 / 0 Balance 0 / 0 Intake: Oral 0 / 0 Other: Other Intake Source Sips NPO with ice chips # Unmeasured Voids 1 Weight 118.1 kg Weight Measurement Method Standing Scale Diagnostic Findings Telemetry reviewed: NSR in the 60's. No arrhythmias echo results reviewed from 06/10: Normal LVEF Mild concentric LVH No wall motion abnormalities LVEF 55-60% Grade II diastolic dysfunction Study compatible with hypertension related heart disease with mild concentric LVH, grade II diastolic dysfunction. Medications Administered Current Inpatient Medications Acetaminophen (Acetaminophen 325 Mg Tab) 650 mg PO Q4H PRN PRN Reason: Pain or Fever Stop: 07/10/23 14:09 Aspirin (Aspirin 81 Mg Ectab) 81 mg PO QAM [facility] Stop: 07/11/23 08:59 Last Admin: 06/11/23 08:57 Dose: 81 mg Losartan Potassium (Losartan Potassium 25 Mg Tab) 25 mg PO QAM [facility] Stop: 07/10/23 14:29 Last Admin: 06/11/23 08:57 Dose: 25 mg Metoprolol Tartrate (Metoprolol Tartrate 25 Mg Tab) 25 mg PO BID [facility] Stop: 07/10/23 20:59 Last Admin: 06/11/23 08:57 Dose: 25 mg Nitroglycerin (Nitroglycerin Sl 0.4 Mg/Tab Tab) 0.4 mg SL Q5M PRN PRN Reason: Chest Pain Stop: 07/10/23 14:09
--- NOTE | 2023-06-11 14:20 | Discharge Summary ---
Date of Service June 11, 2023 Admission HPI Per Admitting Provider This is a 68 y/o female with a PMH of CAD and prior CT s/p angioplasty of the diagonal branch of the LAD in 2009, dyslipidemia with intolerance to statins, and HTN who presented to the ED today with chest pain. She reports that she got up this morning to go to the bathroom around 6 am and developed right chest pain that she describes as a heaviness and pressure. This radiated through to her back and right shoulder blade. She did not take her nitro but called EMS as the pain felt similar to her prior CT in 2009. She had some mild associated dyspnea but denies nausea, diaphoresis, palpitations, or dizziness. She reports that overall, she has done well since 2009 with no significant cardiac events. It appears that her last ECHO was in 2009. She denies any recent exertional chest pain or discomfort, recent illness, heavy lifting, change in activity level, or syncopal episodes. She is currently taking the rosuvastatin once a week on Wednesdays and seems to be tolerating this. Does not tolerate taking more frequently due to myalgias. Admission Exam Per Admitting Provider Constitutional: + obese; no acute distress Eyes: + anicteric sclerae Neck: trachea midline Respiratory: no respiratory distress and no labored breathing Auscultation: lungs clear to auscultation bilaterally; no rales, no rhonchi and no wheezes Cardiovascular: Rate/Rhythm: regular rate and regular rhythm Vessels: posterior tibial pulses present and radial pulses present Extremities: no pedal edema right chest wall tender to palpation - per pt, somewhat reproduces the chest pain she had earlier today Gastrointestinal (Abdomen): Inspection/Auscultation: normal bowel sounds; abdomen not distended Percussion/Palpation: abdomen soft; abdomen nontender Musculoskeletal: Head/Neck/Chest: normocephalic, head atraumatic and neck supple Skin: no jaundice Neurologic: moves all extremities; no focal motor deficits and not confused Psychiatric: A+Ox3, euthymic affect Principal Diagnosis Atypical chest pain, hypertension Elevated hemoglobin A1c Discharge Exam Constitutional: + obese; no acute distress Eyes: + anicteric sclerae Neck: supple Respiratory: no respiratory distress and no labored breathing Auscultation: lungs clear to auscultation bilaterally; no rales, no rhonchi and no wheezes Cardiovascular: Rate/Rhythm: regular rate and regular rhythm B Gastrointestinal (Abdomen): Inspection/Auscultation: normal bowel sounds; abdomen not distended Percussion/Palpation: abdomen soft; abdomen nontender Musculoskeletal: Head/Neck/Chest: normocephalic, head atraumatic and neck supple Skin: warm, dry Neurologic: moves all extremities; no focal motor deficits and not confused Psychiatric: A+Ox3, euthymic affect Discharge Data Allergies Allergy/AdvReac Type Severity Reaction Status Date / Time latex Allergy Mild RASH Unverified 04/28/22 16:38 adhesive Allergy Unknown BANDAIDS-GETS Verified 04/28/22 16:38 BLISTERS simvastatin AdvReac Intermediate CRAMPING Unverified 04/28/22 16:38 Consultations 06/10/23 11:32 ED Decision to Admit Stat 06/10/23 14:10 Consult Cardiology Routine Ordered Studies 06/10/23 10:11 CT angio chest PE protocol Stat FINDINGS: Normal caliber thoracic aorta with no evidence for a dissection. There are [id number] coronary artery calcifications noted. The heart is mildly enlarged. No filling defects within the pulmonary arteries to suggest a pulmonary embolus. No acute fractures within the chest. Trace mucoid material within the trachea. Otherwise, the central airways are patent. No pneumothorax. No pleural effusions. No focal lung consolidations to suggest a pneumonia. No evidence for pulmonary edema. No acute fractures identified. Limited views of the upper abdomen demonstrate hepatic steatosis and a normal spleen. The adrenal glands unremarkable. Prior cholecystectomy. No pericardial effusion. Normal esophagus. No mediastinal or hilar lymphadenopathy. IMPRESSION: 1. No evidence for a pulmonary embolus. 2. Mild cardiomegaly. Hospital Course (1) Chest pain: This is a 68 y/o female with a history of CAD and prior CT s/p primary angio plasty to the diagonal branch of the LAD, dyslipidemia with hx of statin intolerance, HTN, and obesity who presented to the ED with an episode of right chest pressure and heaviness that lasted approximately one hour, went away after taking aspirin 81 mg x 4 from EMS. Initial work-up in the ED was negative for ischemia but with her cardiac history and description of chest pain being similar to prior CT, pt was referred for observation overnight as a chest pain rule out. - med telemetry - Trended troponin - Checked lipid panel - pt is only able to tolerate taking statin once weekly - Checked A1c 8.0% - found elevated which is a sign of diabetes - pt needs to follow up with primary care doctor - pt has a family history of diabetes - Discussed w/ cardiology - with Dr. Roche Echo obtained - Mild concentric LVH. No regional wall motion abnormalities noted. LV systolic function is normal. EF 55 to 60%. Diastolic function. Study compatible with hypertension related heart disease with mild concentric LVH, with grade 2 diastolic function - Continue aspirin and beta-julieth Per cardiology - echo with preserved EF, no wall motion abnormalities. Given negative cardiac enzymes, no recurrent chest pain, and normal echo, no further cardiac testing warranted at this time. Continue ASA, low dose Crestor (intolerant of higher doses and Zetia), metoprolol. Uncontrolled hypertension noted in April 2023 in ER and again on this admission. She does not monitor BP at home. Continue metoprolol Add losartan 25 mg (2) Coronary artery disease: (3) Hypertension: (4) Dyslipidemia: (5) Statin intolerance: Total Time Total Time Spent Total Time Spent (In Minutes): 40 Discharge Plan Discharge Items Patient Disposition: Home - Self-Care Reason For Visit: CHEST PAIN Discharge Diagnosis: Atypical chest pain, hypertension Elevated hemoglobin A1c Activity: Per Instructions section Non-emergency contact: Primary Care Provider Call non-emergency contact if: you have any medication questions and your symptoms worsen Follow-up/Referrals: Calin Nassar MD [Primary Care Provider] - 06/14/23 10:20 am (Date & Time 06/14/2023 10:20 AM Provider Joselyn Rehman PA-C [facility] ) Diet: Carb Consistent or DM2 and Heart Healthy Addtl Attending Provider Instructions: Follow up with primary care physician within 1 week, the appointment was scheduled for you for 06/14/2023. Take losartan 25 mg daily in addition to your metoprolol. Continue taking aspirin and crestor. Your hemoglobin A1c was found to be elevated which is a sign of diabetes - discuss this with your primary care doctor at your next appointment. Pending Studies at Discharge: No Stand-Alone Forms: My [employer], Smoking Cessation Medications and DC Order Prescriptions: New losartan 25 mg Tablet 25 mg PO QAM Qty: 30 0RF Continued aspirin [Aspirin Low-Strength] 81 mg Tablet,Delayed Release (Dr/Ec) 81 mg PO QAM nitroglycerin 0.4 mg Tablet, Sublingual 0.4 mg sublingual UD PRN (Reason: Chest Pain) metoprolol tartrate 25 mg tablet 25 mg PO BID [facility], [facility] Gummies 2 gummy PO DAILY rosuvastatin 5 mg tablet 5 mg PO WK Discharge Orders: Discharge Order (Routine); Ordered 06/11/23 Ordered By: Jensen Campos Admission Data Admit Date/Time: 06/10/23 12:07 Attending Provider: Jensen Campos Admit Provider: Ian Richmond Primary Care Provider: Calin Nassar Other Providers: Ian Richmond ; José Roche
== END 2023-06-11 15:14 | disposition home or self-care (01) ==
LOC: 2N 08:47 → ED 08:47 → SUATTDRO 12:07 → 2N 13:11